=== PATIENT | female | born 1995 | race Caucasian/White ===

== ENCOUNTER 2016-10-16 04:31 | Inpatient (IN) | payer BC ==
[2016-10-16] VITALS (14 sets, daily range): BP systolic 79–142; RESP 14–20; TEMP 97.7–99.2; BMI 39.5
[~2016-10-16] VITALS: Ht 160 cm; Wt 101.2 kg
[2016-10-16] MEDS ORDERED: ALU/MAG/SIM 30 ML UDC PO PRN (05:15)
[2016-10-16] MEDS ORDERED: ONDANSETRON 4 MG VIAL IV PRN ×4 (05:15→16:45)
[2016-10-16] MEDS ORDERED: MORPHINE 4 MG/ML SYR IV PRN ×3 (05:15→16:20)
[2016-10-16] MEDS ORDERED: OXYTOCIN 15 UNITS/250 ML NS 250 ML IV SCH ×2 (05:15→16:45)
[2016-10-16] MEDS ORDERED: LIDOCAINE 1% BUFFERED 1 ML SYR INTRADERM PRN (05:15)
[2016-10-16] MEDS ORDERED: FAMOTIDINE 20 MG INJ IV PRN (05:15)
[2016-10-16] MEDS ORDERED: LIDOCAINE 1% 30 ML PF INFILTRATE ONE (05:15)
[2016-10-16] MEDS ORDERED: ACETAMINOPHEN 325 MG TAB PO PRN (05:15)
[2016-10-16] MEDS ORDERED: PROMETHAZINE 25 MG/ML VIAL IV PRN ×2 (05:15→16:20)
[2016-10-16] MEDS ORDERED: FAMOTIDINE 20 MG TAB PO PRN (05:15)
[2016-10-16] MEDS ORDERED: METOCLOPRAMIDE 10 MG/2 ML VIAL IV PUSH PRN (05:15)
[2016-10-16] MEDS ORDERED: TERBUTALINE 1 MG/ML VIAL SUBQ PRN (05:15)
[2016-10-16] MEDS ORDERED: CEFAZOLIN (LD/OB) 100 ML IV PRN (05:15)
[2016-10-16] MEDS ORDERED: OXYTOCIN 15 UNITS/250 ML NS 15 UNITS in PART FILL PIGGYBACK 1 EA IV SCH (05:20)
[2016-10-16] MEDS: LACT RINGERS 1,000 ML IV SCH ×2 (05:37→07:58)
[2016-10-16] MEDS ORDERED: OXYTOCIN 15 UNITS/250 ML NS 250 ML IV ONE (06:06)
[2016-10-16] MEDS ORDERED: ROPIV/FENT 0.2%-2MCG/ML 100 ML EPIDURAL ONE (07:05)
[2016-10-16] MEDS ORDERED: FENTANYL 100 MCG/2 ML AMP ONE (07:06)
[2016-10-16] MEDS ORDERED: LIDOCAINE 2% 5 ML IV ONE (09:48)
[2016-10-16] MEDS ORDERED: OXYTOCIN 10 UNITS/ML VIAL IV ONE (09:49)
[2016-10-16] MEDS ORDERED: MIDAZOLAM 2 MG/2 ML INJ IV ONE (09:49)
[2016-10-16] MEDS ORDERED: MORPHINE PF 0.5 MG/ML 10 ML IV ONE (09:49)
[2016-10-16] MEDS ORDERED: FENTANYL 100 MCG/2 ML AMP IV ONE (09:49)
[2016-10-16] MEDS ORDERED: CHLOROPROCAINE 3% VIAL EPIDURAL ONE (09:49)
[2016-10-16] MEDS ORDERED: MEPERIDINE 25 MG/ML IV ONE (09:49)
[2016-10-16] MEDS ORDERED: PHENYLEPHRINE 10 MG/ML VIAL IV ONE (09:50)
[2016-10-16] MEDS ORDERED: LACT RINGERS 500 ML IV PRN (10:05)
[2016-10-16] MEDS ORDERED: LACT RINGERS 500 ML IV ONE (10:05)
[2016-10-16] MEDS ORDERED: ROPIV/FENT 0.2%-2MCG/ML 100 ML EPIDURAL SCH (10:05)
[2016-10-16] MEDS ORDERED: FENTANYL 100 MCG/2 ML AMP EPIDURAL ONE (10:05)
[2016-10-16] MEDS ORDERED: SODIUM CHLORIDE 0.9% 500 ML IV PRN (10:05)
[2016-10-16] MEDS ORDERED: BUTORPHANOL 2 MG/ML VIAL IV PRN (16:20)
[2016-10-16] MEDS ORDERED: DIPHENHYDRAMINE 50 MG/ML VIAL IV PRN (16:20)
[2016-10-16] MEDS ORDERED: NALOXONE 0.4 MG/ML AMP IV PRN (16:20)
[2016-10-16] MEDS ORDERED: MEPERIDINE 25 MG/ML IV PRN (16:20)
[2016-10-16] MEDS ORDERED: SALINE FLUSH 10 ML FLUSH PRN (16:20)
[2016-10-16] MEDS ORDERED: DILAUDID 1 MG/ML AMP IV PRN (16:20)
[2016-10-16] MEDS ORDERED: MORPHINE 2 MG/ML SYR IV PRN ×2 (16:20)
[2016-10-16] MEDS ORDERED: OXYCODONE 5 MG TAB PO PRN (16:20)
[2016-10-16] MEDS ORDERED: LACT RINGERS 1,000 ML IV SCH (16:45)
[2016-10-16] MEDS ORDERED: MAG HYDROX 30 ML UDC PO PRN (16:45)
[2016-10-16] MEDS ORDERED: TDaP 0.5 ML VIAL IM.VACC ONE (16:45)
[2016-10-16] MEDS ORDERED: MEASLES,MUMPS,RUBELLA VAC SUBQ.VACC ONE (16:45)
[2016-10-16] MEDS: MISOPROSTOL 200 MCG TAB PO SCH ×2 (16:47→19:53)
[2016-10-16] MEDS ORDERED: TERBUTALINE 1 MG/ML VIAL ONE (16:50)
[2016-10-16] MEDS ORDERED: MISOPROSTOL 100 MCG TAB ONE (16:50)
[2016-10-16] MEDS: KETOROLAC 30 MG/ML VIAL IV SCH ×2 (17:33→23:25)
[2016-10-16] MEDS ORDERED: **ONLY ANESTEHSIA MAY ORDER OPIATES WHILE ON EPIDURAL XX SCH (20:00)
[2016-10-16] MEDS: SALINE FLUSH 10 ML FLUSH SCH (20:00)
[2016-10-17 02:04] VITALS: BP_SYST 131; RESP 16; TEMP 98.2
[2016-10-17] MEDS: KETOROLAC 30 MG/ML VIAL IV SCH ×2 (05:29→11:26)
[2016-10-17 05:31] VITALS: BP_SYST 128; RESP 16; TEMP 98.6
[2016-10-17] MEDS ORDERED: SODIUM CHLORIDE 0.9% FLUSH BAG 500 ML IV SCH (06:00)
[2016-10-17] MEDS: DOCUSATE SOD 100 MG CAP PO SCH (08:26)
[2016-10-17 09:30] VITALS: BP_SYST 120; RESP 16; TEMP 98.1
[2016-10-17] MEDS: SALINE FLUSH 10 ML FLUSH SCH ×2 (11:26→20:00)
[2016-10-17] MEDS: Ibuprofen 600 MG TAB PO SCH ×2 (12:00→18:12)
[2016-10-17 13:46] VITALS: BP_SYST 144; RESP 20; TEMP 97.7
[2016-10-17 17:36] VITALS: BP_SYST 140; TEMP 98.2
[2016-10-18] MEDS: Ibuprofen 600 MG TAB PO SCH ×3 (00:39→11:50)
[2016-10-18 05:08] VITALS: BP_SYST 133; RESP 16; TEMP 98.1
[2016-10-18] MEDS: DOCUSATE SOD 100 MG CAP PO SCH (08:56)
[2016-10-18 09:03] VITALS: BP_SYST 138; RESP 20; TEMP 98.1
[2016-10-18 13:06] VITALS: BP_SYST 144; RESP 12; TEMP 98
[2016-10-18 14:32] VITALS: BP_SYST 144; RESP 12; TEMP 98
[2016-10-18] MEDS ORDERED: MEASLES,MUMPS,RUBELLA VAC SUBQ.VACC ONE (16:04)
== END 2016-10-18 16:32 | disposition home or self-care (01) | DRG 766 ==
LOC: LDOP 04:31 → LD 05:13 → OB 18:41
PROVIDERS: ADMIT Obstetrics & Gynecology; ATTEND Obstetrics & Gynecology Reproductive Endocrinology
PROC: 10D00Z1 Extraction of Products of Conception, Low, Open Approach (ICD-10-PCS; principal; 2016-10-16)
CPT/HCPCS: 82803; 84112; 85025; 86850; 86900; 86901; 90707; 96372